=== PATIENT | female | born 1995 | race Two or more races ===

== ENCOUNTER 2020-11-23 14:28 | Inpatient (IN) | payer OTHER ==
[~2020-11-23] VITALS: Ht 167.6 cm; Wt 68.6 kg
[2020-11-23] MEDS ORDERED: MEPERIDINE/PF 50 MG/ML ONE (16:23)
[2020-11-23] MEDS ORDERED: PROMETHAZINE 25 MG/ML, 1ML ONE (16:23)
[2020-11-23] MEDS ORDERED: PROMETHAZINE 25 MG/ML, 1ML IM ONE (16:30)
[2020-11-23] MEDS ORDERED: MEPERIDINE/PF 50 MG/ML IM ONE (16:30)
[2020-11-23] MEDS: LACTATED RINGERS 1,000 ML IV SCH ×2 (18:15→23:52)
[2020-11-23 18:28] LABS: BASOPHILS % (AUTO) 1 % (0-1); EOSINOPHILS % (AUTO) 1 % (1-7); LYMPHOCYTES % (AUTO) 9 % (22-44); MEAN CORPUSCULAR HEMOGLOBIN 32.2 pg (27.0-34.8); MEAN PLATELET VOLUME 7.5 fL (7.4-10.4); MONOCYTES % (AUTO) 8 % (2-9); NEUTROPHILS % (AUTO) 82 % (42-75); PLATELET COUNT 310 x10^3/uL (130-400); RED BLOOD COUNT 4.07 x10^6/uL (3.82-5.3); RED CELL DISTRIBUTION WIDTH 13.5 % (9.6-15.2)
[2020-11-23] MEDS ORDERED: OXYTOCIN 30U/ 0.9% NaCL 500ML 500 ML IV ONE (18:30)
[2020-11-23] MEDS ORDERED: TERBUTALINE 1 MG/ML, 1ML IVPush PRN (18:30)
[2020-11-23] MEDS ORDERED: SODIUM CITRATE/CITRIC ACID 30 ML UDC PO PRN (18:30)
[2020-11-23] MEDS ORDERED: METOCLOPRAMIDE 5 MG/ML, 2ML IVPush PRN (18:30)
[2020-11-23] MEDS ORDERED: FENTANYL PF 100 MCG/2ML IVPush PRN (18:30)
[2020-11-23] MEDS ORDERED: D5%-LACTATED RINGERS 1,000 ML IV SCH (18:30)
[2020-11-23] MEDS ORDERED: TERBUTALINE 1 MG/ML, 1ML SQ PRN (18:30)
[2020-11-23] MEDS ORDERED: OXYTOCIN 30U/ 0.9% NaCL 500ML 500 ML IV PRN (18:30)
[2020-11-23] MEDS ORDERED: CALCIUM CARBONATE 500 MG TAB.CHEW PO PRN (18:30)
[2020-11-23] MEDS ORDERED: ONDANSETRON 2MG/ML, 2ML IVPush PRN (18:30)
[2020-11-23] MEDS ORDERED: FENTANYL PF 100 MCG/2ML IV PRN (18:30)
[2020-11-23] MEDS ORDERED: NEWBORN KIT ONE (19:23)
[2020-11-23] MEDS ORDERED: MISOPROSTOL 200 MCG TABLET ONE (19:26)
[2020-11-23] MEDS ORDERED: PREN1TAB62 PO (20:31)
[2020-11-24] MEDS ORDERED: FENTANYL/BUPIV./NS/PF 250 ML EPIDCONT SCH (00:30)
[2020-11-24] MEDS ORDERED: FENTANYL/BUPIV./NS/PF 250 ML EPIDCONT ONE (00:30)
[2020-11-24] MEDS ORDERED: BUPIVACAINE 0.25% ONE (00:30)
[2020-11-24] MEDS ORDERED: NALOXONE 0.4 MG/ML, 1ML IVPush PRN (00:30)
[2020-11-24] MEDS ORDERED: EPHEDRINE 50 MG/ML, 1ML IVPush PRN (00:30)
[2020-11-24] MEDS: LACTATED RINGERS 1,000 ML IV SCH ×2 (00:30→08:30)
[2020-11-24] MEDS ORDERED: LACTATED RINGERS 1,000 ML IVBOLUS PRN (00:30)
[2020-11-24] MEDS ORDERED: OXYTOCIN 10 UNITS/ML, 1ML ONE (06:21)
[2020-11-24] MEDS ORDERED: MISOPROSTOL 200 MCG TABLET ONE (06:21)
[2020-11-24] MEDS ORDERED: CALCIUM CARBONATE 500 MG TAB.CHEW PO PRN (06:30)
[2020-11-24] MEDS ORDERED: MISOPROSTOL 200 MCG TABLET PR PRN (06:30)
[2020-11-24] MEDS: OXYTOCIN 30U/ 0.9% NaCL 500ML 500 ML IV SCH ×2 (06:30→16:30)
[2020-11-24] MEDS ORDERED: ACETAMINOPHEN 325 MG TABLET PO PRN (06:30)
[2020-11-24] MEDS ORDERED: DOCUSATE 100 MG CAPSULE PO PRN (06:30)
[2020-11-24] MEDS ORDERED: SIMETHICONE 80 MG CHEW TAB PO PRN (06:30)
[2020-11-24] MEDS ORDERED: OXYcodone/APAP 5/325MG TABLET PO PRN (06:30)
[2020-11-24] MEDS ORDERED: ONDANSETRON 2MG/ML, 2ML IV PRN (06:30)
[2020-11-24] MEDS: PRENATAL VIT/IRON/FA 1 EACH TABLET PO SCH (09:00)
[2020-11-24] MEDS: IBUPROFEN 600 MG TABLET PO PRN ×3 (09:17→20:54)
[2020-11-24 13:11] LABS: BASOPHILS % (AUTO) 1 % (0-1); EOSINOPHILS % (AUTO) 1 % (1-7); LYMPHOCYTES % (AUTO) 7 % (22-44); MEAN CORPUSCULAR HEMOGLOBIN 32.6 pg (27.0-34.8); MEAN CORPUSCULAR HGB CONC 34.3 g/dL (32.4-35.8); MEAN PLATELET VOLUME 7.2 fL (7.4-10.4); MONOCYTES % (AUTO) 7 % (2-9); NEUTROPHILS % (AUTO) 85 % (42-75); PLATELET COUNT 309 x10^3/uL (130-400); RED BLOOD COUNT 3.75 x10^6/uL (3.82-5.3); RED CELL DISTRIBUTION WIDTH 13.4 % (9.6-15.2)
[2020-11-24 15:59] VITALS: BP 105/66
[2020-11-24 20:00] VITALS: BP 109/72
[2020-11-25] VITALS: BP 107/71
[2020-11-25] MEDS: OXYTOCIN 30U/ 0.9% NaCL 500ML 500 ML IV SCH (02:30)
[2020-11-25] MEDS: IBUPROFEN 600 MG TABLET PO PRN (07:35)
[2020-11-25] MEDS: PRENATAL VIT/IRON/FA 1 EACH TABLET PO SCH (07:35)
[2020-11-25 08:00] VITALS: BP 110/72
[2020-11-25] MEDS ORDERED: IBUP-1222 PO (09:25)
[2020-11-25] MEDS ORDERED: MEASLES,MUMPS&RUBELLA VACC/PF 0.5 ML SQ-VACC ONE (11:00)
== END 2020-11-25 13:20 | disposition home or self-care (01) | DRG 807 ==
LOC: LDOP 14:28 → LDIP 18:08 → 2NW 11-24 15:25
PROVIDERS: ADMIT Student in an Organized Health Care Education/Training Program; ATTEND Student in an Organized Health Care Education/Training Program
PROC: 10E0XZZ Delivery of Products of Conception, External Approach (ICD-10-PCS; principal; 2020-11-24)
PROC: 0HQ9XZZ Repair Perineum Skin, External Approach (ICD-10-PCS; 2020-11-24)
PROC: 3E0R3BZ Introduction of Anesthetic Agent into Spinal Canal, Percutaneous Approach (ICD-10-PCS; 2020-11-24)
PROC: 00HU33Z Insertion of Infusion Device into Spinal Canal, Percutaneous Approach (ICD-10-PCS; 2020-11-24)
PROC: 3E0134Z Introduction of Serum, Toxoid and Vaccine into Subcutaneous Tissue, Percutaneous Approach (ICD-10-PCS; 2020-11-25)
DX: O70.0 First degree perineal laceration during delivery (principal); Z37.0 Single live birth; Z3A.39 39 weeks gestation of pregnancy; Z20.822 Contact with and (suspected) exposure to COVID-19; Z23 Encounter for immunization
CPT/HCPCS: 36415; 85025; 86592; 86850; 86900; 87635; 90707; G0378; J2175; J2550; J3010; J7120

== ENCOUNTER 2020-12-08 19:39 | Emergency (ER) | payer OTHER ==
[~2020-12-08] VITALS: Ht 167.6 cm; Wt 61.0 kg
[~2020-12-08 19:39] MED LIST: IBUP-1222 PO; PREN1TAB62 PO
--- NOTE | 2020-12-08 20:26 | NUR ---
PT PRESENTS TO ED WITH BODY ACHES, FEVERS AND CHILLS. PT HAD A BABY 2 WEEKS AGO AND IS ALSO COMPLAINING OF CRAMPING. PT STATES SHE IS ALSO STARTING TO HAVE A SORE THROAT. PT IN GOWN, RESTING ON GURNEY, AND PLACED ON CONTINUOUS MONITORING.
[2020-12-08] MEDS ORDERED: SODIUM CHLORIDE 0.9% 1,000ML IVBOLUS ONE ×2 (21:00→23:00)
--- NOTE | 2020-12-08 21:00 | NUR ---
20 G IV started to the left AC. Blood culutres, labs, and UA sent.
[2020-12-08 21:11] LABS: BASOPHILS % (AUTO) 1 % (0-1); EOSINOPHILS % (AUTO) 0 % (1-7); LYMPHOCYTES % (AUTO) 6 % (22-44); MEAN CORPUSCULAR HGB CONC 34.1 g/dL (32.4-35.8); MONOCYTES % (AUTO) 7 % (2-9); NEUTROPHILS % (AUTO) 87 % (42-75); PLATELET COUNT 450 x10^3/uL (130-400); RED BLOOD COUNT 4.56 x10^6/uL (3.82-5.3); RED CELL DISTRIBUTION WIDTH 14.1 % (9.6-15.2)
[2020-12-08 21:20] LABS: ALANINE AMINOTRANSFERASE 58 U/L (12-78); ALBUMIN 3.5 g/dL (3.4-5.0); ANION GAP 6 mmol/L (5-15); CALCIUM 8.9 mg/dL (8.5-10.1); CHLORIDE 103 mmol/L (98-107); CREATININE 0.74 mg/dL (0.55-1.02)
[2020-12-08 21:23] LABS: ALKALINE PHOSPHATASE 146 U/L (45-117); BILIRUBIN,TOTAL 0.5 mg/dL (0.2-1.0); TOTAL PROTEIN 8.3 g/dL (6.4-8.2)
[2020-12-08 21:25] LABS: MICROSCOPIC AUTO
[2020-12-08] MEDS ORDERED: CEFTRIAXONE 2 GM in DEXTROSE 5% 50 ML IVPB ONE (22:00)
--- NOTE | 2020-12-08 22:15 | NUR ---
PT'S ANTIBIOTIC STARTED, PT RESTING ON GURNEY, DENIES NEEDS AT THIS TIME.
[2020-12-08] MEDS ORDERED: AZITHROMYCIN 500 MG in SODIUM CHLORIDE 0.9% 250 ML IV ONE (23:00)
[2020-12-08] MEDS ORDERED: ACETAMINOPHEN 500 MG TABLET ONE (23:52)
[2020-12-08] MEDS ORDERED: IBUPROFEN 600 MG TABLET ONE (23:52)
[2020-12-09] MEDS ORDERED: IBUPROFEN 600 MG TABLET PO ONE
[2020-12-09] MEDS ORDERED: ACETAMINOPHEN 500 MG TABLET PO ONE
--- NOTE | 2020-12-09 00:10 | NUR ---
PT HAD A NEW IV STARTED TO LEFT AC AND THE IV ON THE RIGHT WAS REMOVED. PT TOLERATED PROCEDURE WELL.
[2020-12-09 01:01] VITALS: BP 109/62
--- NOTE | 2020-12-09 01:26 | NUR ---
Patient given discharge instructions and they have confirmed that they understand the instructions. Patient ambulatory with steady gait.
== END 2020-12-09 01:28 | disposition home or self-care (01) ==
LOC: ED 21:00
DX: N10 Acute pyelonephritis (principal); N39.0 Urinary tract infection, site not specified
CPT/HCPCS: 36415; 71045; 76770; 80053; 81001; 83605; 85025; 87040; 87086; 96361; 96365; 96375; 99285; J0456; J0696; J7030; J7050